=== PATIENT | male | born 2000 | race African-American/Black ===

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

== ENCOUNTER 2022-06-25 20:48 | Emergency (ER) | payer MEDICAID ==
[~2022-06-25] VITALS: Ht 185.4 cm; Wt 78.1 kg
[2022-06-25 21:39] VITALS: BP 110/69
== END 2022-06-25 22:53 | disposition home or self-care (01) ==
LOC: ER 20:49
DX: S13.9XXA Sprain of joints and ligaments of unspecified parts of neck, initial encounter (principal); M54.50 Low back pain, unspecified; V89.2XXA Person injured in unspecified motor-vehicle accident, traffic, initial encounter; Y93.89 Activity, other specified; Y92.89 Other specified places as the place of occurrence of the external cause; Y99.8 Other external cause status
CPT/HCPCS: 72125; 72131